=== PATIENT | male | born 1980 | race Caucasian/White ===

== ENCOUNTER 2020-10-27 03:39 | Emergency (ER) | payer SELFPAY ==
[~2020-10-27 03:39] MED LIST: CLEOCIN HCL300 MG PO; DIFLUCAN150 MG PO; Viscous Lidocaine2% TOP; [UNRECOGNIZED DRUG - OTHER] PO
[2020-10-27] MEDS ORDERED: PERCOCET 5-3251 EACH PO (04:25)
[2020-10-27] MEDS ORDERED: AUGMENTIN 875-1 EACH PO (04:29)
== END 2020-10-27 04:35 | disposition home or self-care (01) ==
LOC: ER1 03:39
DX: K02.9 Dental caries, unspecified (principal)
CPT/HCPCS: 99282

== ENCOUNTER 2021-06-21 18:12 | Emergency (ER) | payer OTHER ==
[~2021-06-21 18:12] MED LIST changes: +AUGMENTIN 875-1 EACH PO; +PERCOCET 5-3251 EACH PO
[2021-06-21] MEDS ORDERED: ENDOCET 5-3251 EACH PO (18:51)
[2021-06-21] MEDS ORDERED: AUGMENTIN 500-500 MG PO (18:51)
== END 2021-06-21 19:15 | disposition home or self-care (01) ==
LOC: ER1 18:12
DX: K02.9 Dental caries, unspecified (principal); F17.200 Nicotine dependence, unspecified, uncomplicated
CPT/HCPCS: 99282